=== PATIENT | male | born 1995 | race Two or more races ===

== ENCOUNTER 2020-09-16 18:51 | Emergency (ER) | payer MEDICAID ==
[~2020-09-16] VITALS: Ht 177.8 cm; Wt 79.4 kg
[2020-09-16] MEDS ORDERED: LORazepam 2MG/ML-1ML VIAL IV ONE (19:15)
[2020-09-16 19:44] LABS: Basophils # (auto) 0 10 ^3/uL (0-0.2); Eosinophils # (auto) 0.1 10 ^3/uL (0-0.8); Lymphocytes # (auto) 1.4 10 ^3/uL (0.4-5.4)
[2020-09-16 19:46] LABS: Basophils % (auto) 0.5 % (0.0-2.0); Eosinophils % (auto) 1.1 % (0.0-7.0); Hematocrit 44.4 % (41.0-53.0); Hemoglobin 15.9 g/dL (13.5-17.5); Lymphocytes % (auto) 14.5 % (10.0-50.0); Mean Corpuscular Hemoglobin 34.7 pg (28.0-32.0); Mean Corpuscular Hgb Conc. 35.8 g/dL (32.0-36.0); Mean Corpuscular Volume 96.8 fL (80.0-100.0); Monocytes # (auto) 0.5 10 ^3/uL (0-1.3); Monocytes % (auto) 5.7 % (0.0-12.0); Neutrophils # (auto) 7.4 10 ^3/uL (1.6-8.6); Neutrophils % (auto) 78.2 % (37.0-80.0); Nucleated Red Blood Cells % 0.1 %; Platelet Count (auto) 239 10^3/uL (140-450); Red Blood Cells 4.59 10^6/uL (4.5-5.90); Red Cell Distribution Width 12.9 % (11.8-14.3); White Blood Cell 9.4 10^3/uL (4.4-10.8)
[2020-09-16 20:05] LABS: Calcium 8.7 mg/dL (8.5-10.1); Potassium 3.6 mmol/L (3.5-5.1)
[2020-09-16 20:11] LABS: Albumin 3.8 g/dL (3.4-5.0); BUN/Creatinine Ratio 16.1; Bilirubin, Total 0.4 mg/dL (0.2-1.0); Total Protein 7.6 g/dL (6.4-8.2)
[2020-09-16] MEDS ORDERED: ONDANSETRON HCL 4 MG/2 ML VIAL IV ONE (20:45)
[2020-09-16 20:49] VITALS: BP 136/84
== END 2020-09-16 21:11 | disposition short-term general hospital (02) ==
LOC: ER 18:51 → EDUNIT# 18:51 → EDBD 18:51 → ER 21:07
DX: S06.5X0A Traumatic subdural hemorrhage without loss of consciousness, initial encounter (principal); G40.909 Epilepsy, unspecified, not intractable, without status epilepticus; F17.210 Nicotine dependence, cigarettes, uncomplicated; F12.10 Cannabis abuse, uncomplicated; X58.XXXA Exposure to other specified factors, initial encounter; Y93.89 Activity, other specified; Y92.89 Other specified places as the place of occurrence of the external cause; Y99.8 Other external cause status
CPT/HCPCS: 36415; 70450; 80053; 85025; 96374; 96375; 99291; J2060; J2405

== ENCOUNTER 2021-09-29 17:17 | Emergency (ER) | payer MEDICAID ==
[~2021-09-29] VITALS: Ht 165.1 cm; Wt 99.8 kg
[2021-09-29 17:37] VITALS: BP 132/83
[2021-09-29] MEDS ORDERED: CEPH-509 PO (18:01)
[2021-09-29] MEDS ORDERED: TOBR0.3S OP (18:01)
== END 2021-09-29 18:04 | disposition home or self-care (01) ==
LOC: ER 17:17
DX: H00.011 Hordeolum externum right upper eyelid (principal); F17.210 Nicotine dependence, cigarettes, uncomplicated; F12.10 Cannabis abuse, uncomplicated